=== PATIENT | female | born 1955 | race Caucasian/White ===

== ENCOUNTER → 2018-07-28 | Outpatient (CLI) | payer MEDICAID | LOC: FIMAGING 17:49 | PROVIDERS: ATTEND Family Medicine Sports Medicine | DX: M50.322 Other cervical disc degeneration at C5-C6 level (principal); M48.02 Spinal stenosis, cervical region; M46.92 Unspecified inflammatory spondylopathy, cervical region; R51 Headache ==

== ENCOUNTER → 2018-07-29 | Outpatient (CLI) | payer MEDICAID | LOC: FIMAGING 11:00 ==

== ENCOUNTER → 2018-09-06 | Outpatient (CLI) | payer MEDICAID | LOC: FIMAGING 10:21 | PROVIDERS: ATTEND Obstetrics & Gynecology | DX: Z12.31 Encounter for screening mammogram for malignant neoplasm of breast (principal) ==